=== PATIENT | female | born 1945 | race Caucasian/White ===

== ENCOUNTER 2017-01-14 09:04 | Outpatient (CLI) | payer MEDICARE, OTHER | END 2017-01-14 09:05 | disposition home or self-care (01) | DX: E78.5 Hyperlipidemia, unspecified (principal); I10 Essential (primary) hypertension ==

== ENCOUNTER 2017-01-31 11:20 | Outpatient (CLI) | payer MEDICARE, OTHER ==
[2017-01-31] MEDS ORDERED: IOPAMIDOL-300 100 ML VIAL IVP ONE (11:51)
--- NOTE | 2017-01-31 13:58 | CT Report ---
CT CHEST WITH CONTRAST: 01/31/2017 CLINICAL INDICATION: Chronic cough. TECHNIQUE: Axial CT images of the chest were obtained with 100 mL Isovue-300 intravenously. No prev ious chest CT is available for comparison. FINDINGS: The heart and great vessels are unremarkable. No hilar or mediastinal lymphadenopathy is present. The lungs are clear. No effusion or pneumothorax is present. Limited evaluation of upper abdominal structures demonstrates normal adrenal glands. Osseous structures demonstrate mild degener ative changes. IMPRESSION: NORMAL CT OF THE CHEST WITH CONTRAST. In accordance with CT protocol optimization, one or more of the following dose reduction techniques w ere utilized for this exam: automated exposure control, adjustment of mA and/or KV based on patient size, or use of iterative reconstructive technique. JOB #: [id number] EXT JOB #:[id number]
== END 2017-01-31 11:21 | disposition home or self-care (01) ==
LOC: DI 11:20
PROVIDERS: ATTEND Physician Assistant Medical
DX: R05 Cough (principal); M19.072 Primary osteoarthritis, left ankle and foot
CPT/HCPCS: 71260; 73630; Q9967

== ENCOUNTER 2017-01-31 14:43 | Outpatient (CLI) | payer MEDICARE, OTHER ==
--- NOTE | 2017-01-31 16:37 | XRAY Report ---
THREE VIEW LEFT FOOT: 01/31/2017 CLINICAL INDICATION: Pain. FINDINGS: AP, lateral, and oblique views of the left foot demonstrate moderate osteoarthritis. There is no evidence of acute fracture or dislocation. No radiopaque foreign body is seen in the soft tiss ues. IMPRESSION: MODERATE OSTEOARTHRITIS. JOB #: [id number] EXT JOB #:[id number]
== END 2017-01-31 14:44 | disposition home or self-care (01) ==
LOC: DI 14:43
PROVIDERS: ATTEND Physician Assistant Medical
DX: M19.072 Primary osteoarthritis, left ankle and foot (principal)

== ENCOUNTER 2017-02-05 14:53 | Outpatient (CLI) | payer MEDICARE, OTHER | END 2017-02-05 14:54 | disposition home or self-care (01) | DX: R60.9 Edema, unspecified (principal) ==

== ENCOUNTER 2017-02-14 09:08 | Outpatient (CLI) | payer MEDICARE, OTHER ==
[2017-02-14] MEDS ORDERED: ALBUTEROL NEB 2.5 MG/3 ML INH ONE (09:42)
== END 2017-02-14 09:09 | disposition home or self-care (01) ==
LOC: RT 09:08
PROVIDERS: ATTEND Physician Assistant Medical
DX: R05 Cough (principal)
CPT/HCPCS: 94060; 94729; J7613

== ENCOUNTER 2017-03-18 10:03 | Outpatient (CLI) | payer MEDICARE, OTHER ==
--- NOTE | 2017-03-22 15:39 | Mammography Report ---
DIGITAL SCREENING MAMMOGRAM: 03/18/2017 CLINICAL INDICATION: A 71-year-old with family history of breast cancer, history of benign biopsy and bilateral reduction, for screening. COMPARISON: Films from [facility] dated 02/28/2016, 03/10/2015, 03/10/2014, 2012. TECHNIQUE: Routine CC and MLO projections were obtained of the breasts. FINDINGS: The breasts demonstrate scattered fibroglandular densities bilaterally. In the right upper outer quadrant, there is apparent increase in calcifications. Further evaluation with spot magnifica tion views is recommended. No mammographically suspicious findings are appreciated in the left breast . IMPRESSION: INCOMPLETE EXAMINATION. RECOMMENDATION: ADDITIONAL EVALUATION OF THE RIGHT BREAST ABOVE. BIRADS CATEGORY 0-INCOMPLETE. STANDARD QUALIFYING STATEMENTS 1. This examination was reviewed with the aid of Computer-Aided Detection (CAD). 2. A negative or benign imaging report should not delay biopsy if clinically suspicious findings are present. Consider surgical consultation if warranted. More than 5% of cancers are not identified by i maging. 3. Dense breasts may obscure an underlying neoplasm. JOB #: [id number] EXT JOB #:[id number]
== END 2017-03-18 10:04 | disposition home or self-care (01) ==
LOC: DI 10:03
PROVIDERS: ATTEND Physician Assistant Medical
DX: Z12.31 Encounter for screening mammogram for malignant neoplasm of breast (principal); R92.2 Inconclusive mammogram; Z80.3 Family history of malignant neoplasm of breast
CPT/HCPCS: 77067

== ENCOUNTER 2017-04-29 11:00 | Outpatient (CLI) | payer MEDICARE, OTHER ==
--- NOTE | 2017-04-29 15:15 | Mammography Report ---
DIGITAL DIAGNOSTIC RIGHT MAMMOGRAM: 04/29/2017 CLINICAL INDICATION: Calcifications on screening. COMPARISON: 03/18/2017, 02/28/2016, 03/10/2015, 03/10/2014, 03/09/2013. TECHNIQUE: Right true lateral and spot magnification views. FINDINGS: The right breast again demonstrates scattered fibroglandular densities. The calcifications in question, in the right upper outer central breast, appear coarse on spot magnification views. No associated mass is identified. IMPRESSION: PROBABLE BENIGN RIGHT BREAST CALCIFICATIONS. RECOMMENDATION: DIAGNOSTIC RIGHT MAMMOGRAM IN SIX MONTHS TO ASSURE STABILITY. BIRADS CATEGORY 3-PROBABLE BENIGN FINDINGS. STANDARD QUALIFYING STATEMENTS 1. This examination was reviewed with the aid of Computer-Aided Detection (CAD). 2. A negative or benign imaging report should not delay biopsy if clinically suspicious findings are present. Consider surgical consultation if warranted. More than 5% of cancers are not identified by i maging. 3. Dense breasts may obscure an underlying neoplasm. JOB #: [id number] EXT JOB #:[id number]
== END 2017-04-29 11:01 | disposition home or self-care (01) ==
LOC: DI 11:00
PROVIDERS: ATTEND Physician Assistant Medical
DX: R92.8 Other abnormal and inconclusive findings on diagnostic imaging of breast (principal)

== ENCOUNTER 2017-05-28 08:15 | Outpatient (CLI) | payer MEDICARE, OTHER ==
[2017-05-28 14:12] LABS: HEMOGLOBIN A1C 0.55 g/dL
[2017-05-28 14:21] LABS: ALBUMIN/GLOBULIN RATIO 1.6 (1.0-2.2); BILIRUBIN,TOTAL 0.4 mg/dL (0.2-1.0); CALCIUM 9.5 mg/dL (8.5-10.3); CREATININE 0.9 mg/dL (0.4-1.0); POTASSIUM 3.8 mmol/L (3.5-5.0); TOTAL PROTEIN 6.5 g/dL (6.7-8.2)
== END 2017-05-28 08:16 | disposition home or self-care (01) ==
LOC: LAB.WCP 08:15
PROVIDERS: ATTEND Physician Assistant Medical
DX: R73.9 Hyperglycemia, unspecified (principal)
CPT/HCPCS: 36415; 80053; 83036

== ENCOUNTER 2017-09-05 10:14 | Outpatient (CLI) | payer MEDICARE, OTHER ==
--- NOTE | 2017-09-05 14:46 | XRAY Report ---
EXAM: LEFT KNEE RADIOGRAPHY EXAM DATE: 09/05/2017 10:39 AM. CLINICAL HISTORY: Left knee pain for one month. No known injury. COMPARISON: None. TECHNIQUE: 3 views. FINDINGS: Bones: Normal. No fractures or bone lesions. Joints: Mild to moderate narrowing of medial compartment height and patella femoral joint space. Mild lateral compartment height narrowing. Spurring of tibial spines. No joint effusion or subluxation. Soft Tissues: Normal. No soft tissue swelling. IMPRESSION: Mild to moderate degenerative changes. [facility] Referring Provider Line: [phone] SITE ID: [id number]
== END 2017-09-05 10:15 | disposition home or self-care (01) ==
LOC: DI 10:14
PROVIDERS: ATTEND Physician Assistant Medical
DX: M17.12 Unilateral primary osteoarthritis, left knee (principal)

== ENCOUNTER 2017-09-30 08:00 | Outpatient (CLI) | payer MEDICARE, OTHER | END 2017-09-30 08:01 | disposition home or self-care (01) | LOC: LAB.WCP 08:00 | PROVIDERS: ATTEND Physician Assistant Medical | DX: L03.319 Cellulitis of trunk, unspecified (principal) | CPT/HCPCS: 87070; 87205 ==

== ENCOUNTER 2017-11-19 10:45 | Outpatient (CLI) | payer MEDICARE, OTHER ==
--- NOTE | 2017-11-19 17:55 | Mammography Report ---
DIGITAL DIAGNOSTIC RIGHT MAMMOGRAM: 11/19/2017 CLINICAL INDICATION: Followup calcifications. COMPARISON: 04/29/2017, 03/18/2017, 02/28/2016, 03/10/2015, 03/10/2014, 03/09/2013. TECHNIQUE: Right CC, MLO, true lateral, spot magnification views. FINDINGS: The right breast again demonstrates scattered fibroglandular densities. The calcifications in question, in the right upper outer central breast, have coarsened in the interval. No developing pleomorphism is seen. No associated mass or architectural distortion is seen. IMPRESSION: PROBABLE BENIGN CALCIFICATIONS. RECOMMENDATION: Diagnostic bilateral mammogram in 6 months, to assure stability. BIRADS category: 3, probable benign findings. STANDARD QUALIFYING STATEMENTS 1. This examination was reviewed with the aid of Computed-Aided Detection (CAD). 2. A negative or benign imaging report should not delay biopsy if clinically suspicious findings are present. Consider surgical consultation if warranted. More than 5% of cancers are not identified by imaging. 3. Dense breasts may obscure an underlying neoplasm. TD: 11/19/2017 17:54
== END 2017-11-19 10:46 | disposition home or self-care (01) ==
LOC: DI 10:45
PROVIDERS: ATTEND Physician Assistant Medical
DX: R92.1 Mammographic calcification found on diagnostic imaging of breast (principal)

== ENCOUNTER 2017-12-05 08:00 | Outpatient (CLI) | payer MEDICARE, OTHER | END 2017-12-05 08:01 | disposition home or self-care (01) | LOC: LAB.WCP 08:00 | PROVIDERS: ATTEND Physician Assistant Medical | DX: N64.9 Disorder of breast, unspecified (principal) | CPT/HCPCS: 87070; 87205 ==

== ENCOUNTER 2017-12-20 08:00 | Outpatient (CLI) | payer MEDICARE, OTHER ==
[2017-12-20 13:03] LABS: ALBUMIN 3.8 g/dL (3.2-5.5); ALBUMIN/GLOBULIN RATIO 1.4 (1.0-2.2); ALKALINE PHOSPHATASE 51 IU/L (42-121); ALT ALANINE AMINOTRANSFERASE 29 IU/L (10-60); AST ASPARTATE AMINOTRANSFERASE 24 IU/L (10-42); BILIRUBIN,TOTAL 0.7 mg/dL (0.2-1.0); BUN - BLOOD UREA NITROGEN 17 mg/dL (6-20); CALCIUM 8.8 mg/dL (8.5-10.3); CARBON DIOXIDE - CO2 28 mmol/L (21-32); CHLORIDE 105 mmol/L (101-111); CHOLESTEROL 144 mg/dL; CREATININE 0.9 mg/dL (0.4-1.0); GFR - MDRD 62 (>89); GLUCOSE 108 mg/dL (70-100); HDL CHOLESTEROL 48 mg/dL; LDL CHOLESTEROL,CALCULATED 64 mg/dL; LDL/HDL RATIO 1.3 (<4.4); SODIUM 138 mmol/L (135-145); TOTAL PROTEIN 6.5 g/dL (6.7-8.2); VLDL CHOLESTEROL 32 mg/dL
== END 2017-12-20 08:01 | disposition home or self-care (01) ==
LOC: LAB.WCP 08:00
PROVIDERS: ATTEND Physician Assistant Medical
DX: R73.9 Hyperglycemia, unspecified (principal); E78.5 Hyperlipidemia, unspecified
CPT/HCPCS: 36415; 80053; 80061; 83721

== ENCOUNTER 2018-06-26 08:26 | Outpatient (CLI) | payer MEDICARE, OTHER ==
[2018-06-26 13:01] LABS: ALBUMIN 3.9 g/dL (3.2-5.5); ALBUMIN/GLOBULIN RATIO 1.4 (1.0-2.2); ALKALINE PHOSPHATASE 64 IU/L (42-121); ALT ALANINE AMINOTRANSFERASE 31 IU/L (10-60); AST ASPARTATE AMINOTRANSFERASE 24 IU/L (10-42); BILIRUBIN,TOTAL 0.5 mg/dL (0.2-1.0); BUN - BLOOD UREA NITROGEN 17 mg/dL (6-20); CALCIUM 9.3 mg/dL (8.5-10.3); CARBON DIOXIDE - CO2 28 mmol/L (21-32); CHLORIDE 102 mmol/L (101-111); CHOL/HDL RATIO 2.7 (<4.4); CHOLESTEROL 138 mg/dL; CREATININE 0.4 mg/dL (0.4-1.0); GFR - MDRD 158 (>89); GLUCOSE 117 mg/dL (70-100); HDL CHOLESTEROL 52 mg/dL; LDL CHOLESTEROL,CALCULATED 56 mg/dL; LDL/HDL RATIO 1.1 (<4.4); SODIUM 139 mmol/L (135-145); TOTAL PROTEIN 6.6 g/dL (6.7-8.2); VLDL CHOLESTEROL 30 mg/dL
== END 2018-06-26 08:27 | disposition home or self-care (01) ==
LOC: LAB.WCP 08:26
PROVIDERS: ATTEND Physician Assistant Medical
DX: E78.5 Hyperlipidemia, unspecified (principal)
CPT/HCPCS: 36415; 80053; 80061; 83721

== ENCOUNTER 2018-10-08 08:00 | Outpatient (CLI) | payer MEDICARE, OTHER ==
[2018-10-08 19:08] LABS: CREATININE 0.8 mg/dL (0.4-1.0)
== END 2018-10-08 23:59 | disposition home or self-care (01) ==
LOC: LAB.WCP 08:00
PROVIDERS: ATTEND Physician Assistant
DX: Z01.812 Encounter for preprocedural laboratory examination (principal)
CPT/HCPCS: 36415; 82565

== ENCOUNTER 2018-10-15 08:00 | Outpatient (CLI) | payer MEDICARE, OTHER | END 2018-10-15 23:59 | disposition home or self-care (01) | LOC: LAB.WCP 08:00 | PROVIDERS: ATTEND Physician Assistant Medical | DX: L03.319 Cellulitis of trunk, unspecified (principal) | CPT/HCPCS: 87070; 87075; 87205 ==

== ENCOUNTER 2019-01-26 23:02 | Outpatient (CLI) | payer MEDICARE, OTHER ==
--- NOTE | 2019-01-27 03:10 | Ultrasound Report ---
Reason: EDEMA Procedure Date: 01/26/2019 Accession Number: [id number] / [id number] Procedure: US - Duplex Ext Veins Bilateral CPT Code: FULL RESULT: EXAM: BILATERAL LOWER EXTREMITY VENOUS ULTRASOUND EXAM DATE: 01/26/2019 11:00 PM. CLINICAL HISTORY: Bilateral edema. COMPARISON: 02/05/2017. TECHNIQUE: Real-time sonographic vascular imaging was performed by the manager wellness through the lower extremities utilizing both color-flow and Doppler spectral analysis. Multiple union representative static images were saved for review. FINDINGS: Right: Common Femoral Vein (CFV): Normal. CFV-GSV Junction: Normal. Profunda Femoral Vein (PFV): Normal. Femoral Vein (FV) Prox: Normal. Femoral Vein (FV) Mid: Normal. Femoral Vein (FV) Dist: Normal. Popliteal Vein: Normal. Posterior Tibial Veins: Normal. Peroneal Veins: Normal. Left: Common Femoral Vein (CFV): Normal. CFV-GSV Junction: Normal. Profunda Femoral Vein (PFV): Normal. Femoral Vein (FV) Prox: Normal. Femoral Vein (FV) Mid: Normal. Femoral Vein (FV) Dist: Normal. Popliteal Vein: Normal. Posterior Tibial Veins: Normal. Peroneal Veins: Normal. Other: Left popliteal fossa cyst measuring 5.1 x 1.3 x 2.5 cm. IMPRESSION: 1. No evidence for deep venous thrombosis bilaterally. 2. Left popliteal fossa cyst again seen. [facility]
== END 2019-01-26 23:03 | disposition home or self-care (01) ==
LOC: DI 23:02
PROVIDERS: ATTEND Physician Assistant Medical
DX: M71.22 Synovial cyst of popliteal space [Baker], left knee (principal); R60.9 Edema, unspecified
CPT/HCPCS: 93970

== ENCOUNTER 2019-01-28 08:00 | Outpatient (CLI) | payer MEDICARE, OTHER ==
[2019-01-28 18:59] LABS: BILIRUBIN,URINE NEGATIVE (NEGATIVE); GLUCOSE, URINE (UA) NEGATIVE (NEGATIVE); KETONES,URINE (UA) NEGATIVE (NEGATIVE); LEUKOCYTE ESTERASE, URINE NEGATIVE (NEGATIVE); NITRITE,URINE NEGATIVE (NEGATIVE); OCCULT BLOOD,URINE NEGATIVE (NEGATIVE); PROTEIN,URINE NEGATIVE (NEGATIVE); UROBILINOGEN,URINE 0.2 (NORMAL) E.U./dL (NORMAL)
[2019-01-28 19:10] LABS: CALCIUM 9.4 mg/dL (8.5-10.3); CREATININE 0.8 mg/dL (0.4-1.0)
[2019-01-28 19:18] LABS: CLARITY,URINE CLEAR (CLEAR)
== END 2019-01-28 08:01 | disposition home or self-care (01) ==
LOC: LAB.WCP 08:00
PROVIDERS: ATTEND Physician Assistant Medical
DX: R60.9 Edema, unspecified (principal)
CPT/HCPCS: 36415; 80048; 81001; 81003; 87086

== ENCOUNTER 2019-02-20 11:00 | Outpatient (CLI) | payer MEDICARE, OTHER ==
--- NOTE | 2019-02-20 15:12 | XRAY Report ---
Reason: KNEE PAIN,LEFT,ANKLE PAIN,LEFT Procedure Date: 02/20/2019 Accession Number: [id number] / [id number] Procedure: WCP - Knee 2 View LT CPT Code: FULL RESULT: EXAM: LEFT KNEE RADIOGRAPHY EXAM DATE: 02/20/2019 11:22 AM. CLINICAL HISTORY: KNEE PAIN,LEFT,ANKLE PAIN,LEFT. COMPARISON: KNEE 3 VIEW LT 09/05/2017 10:19 AM. TECHNIQUE: 3 views. FINDINGS: Bones: Normal. No fractures or bone lesions. Joints: Osteophyte lateral joint space with mild joint space narrowing. Spurring of the tibial spines. Small osteophyte patellofemoral compartment. Trace effusion. Soft Tissues: Normal. No soft tissue swelling. IMPRESSION: Mild to moderate DJD [facility]
--- NOTE | 2019-02-20 15:14 | XRAY Report ---
Reason: KNEE PAIN,LEFT,ANKLE PAIN,LEFT Procedure Date: 02/20/2019 Accession Number: [id number] / [id number] Procedure: WCP - Ankle 2 View LT CPT Code: FULL RESULT: EXAM: LEFT ANKLE RADIOGRAPHY EXAM DATE: 02/20/2019 11:22 AM. CLINICAL HISTORY: Chronic ankle pain COMPARISON: None. TECHNIQUE: 2 views. FINDINGS: Bones: Plantar heel spur. Spurring lateral ankle joint space. Narrowing of the tibiotalar joint.Spurring talonavicular joint. Spurring anterior talus. No subluxations. The ankle mortise is normally aligned. Soft Tissues: Normal. No soft tissue swelling. IMPRESSION: DJD. If there is clinical concern for acute fracture 3 views are recommended [facility]
== END 2019-02-20 11:01 | disposition home or self-care (01) ==
LOC: DI.WCP 11:00
PROVIDERS: ATTEND Physician Assistant Medical
DX: M17.12 Unilateral primary osteoarthritis, left knee (principal); M19.072 Primary osteoarthritis, left ankle and foot

== ENCOUNTER 2019-06-18 08:00 | Outpatient (CLI) | payer MEDICARE, OTHER ==
[2019-06-18 12:04] LABS: BASOPHILS # (AUTO) 0.1 10^3/uL (0.0-0.1); BASOPHILS % (AUTO) 1.1 %; EOSINOPHILS # (AUTO) 0.1 10^3/uL (0.0-0.7); EOSINOPHILS % (AUTO) 2.5 %; HGB - HEMOGLOBIN 14.4 g/dL (12.0-16.0); LYMPHOCYTES # (AUTO) 1.1 10^3/uL (1.5-3.5); LYMPHOCYTES % (AUTO) 20.3 %; MEAN CORPUSCULAR HEMOGLOBIN 31.6 pg (27.0-31.0); MEAN CORPUSCULAR HGB CONC 33.8 g/dL (32.0-36.0); MEAN CORPUSCULAR VOLUME 93.6 fL (81.0-99.0); MEAN PLATELET VOLUME 10.3 fL (7.9-10.8); MONOCYTES # (AUTO) 0.5 10^3/uL (0.0-1.0); MONOCYTES % (AUTO) 8.8 %; NEUTROPHILS # (AUTO) 3.7 10^3/uL (1.5-6.6); NEUTROPHILS % (AUTO) 66.9 %; PLT - PLATELET COUNT 319 10^3/uL (130-450); RED BLOOD COUNT 4.55 10^6/uL (4.20-5.40); WHITE BLOOD COUNT 5.6 x10^3/uL (4.8-10.8)
[2019-06-18 12:54] LABS: ALBUMIN 4.1 g/dL (3.2-5.5); ALBUMIN/GLOBULIN RATIO 1.5 (1.0-2.2); ALKALINE PHOSPHATASE 67 IU/L (42-121); ALT ALANINE AMINOTRANSFERASE 23 IU/L (10-60); AST ASPARTATE AMINOTRANSFERASE 20 IU/L (10-42); BILIRUBIN,TOTAL 0.6 mg/dL (0.2-1.0); BUN - BLOOD UREA NITROGEN 22 mg/dL (6-20); CALCIUM 9.4 mg/dL (8.5-10.3); CARBON DIOXIDE - CO2 25 mmol/L (21-32); CHLORIDE 104 mmol/L (101-111); CHOL/HDL RATIO 2.7 (<4.4); CHOLESTEROL 152 mg/dL; CREATININE 0.9 mg/dL (0.4-1.0); GFR - MDRD 62 (>89); GLUCOSE 142 mg/dL (70-100); HDL CHOLESTEROL 57 mg/dL; LDL CHOLESTEROL,CALCULATED 71 mg/dL; LDL/HDL RATIO 1.2 (<4.4); SODIUM 137 mmol/L (135-145); TOTAL PROTEIN 6.9 g/dL (6.7-8.2); VLDL CHOLESTEROL 24 mg/dL
== END 2019-06-18 23:59 | disposition home or self-care (01) ==
LOC: LAB.WCP 08:00
PROVIDERS: ATTEND Physician Assistant Medical
DX: R73.9 Hyperglycemia, unspecified (principal); E78.5 Hyperlipidemia, unspecified; R53.83 Other fatigue; I10 Essential (primary) hypertension
CPT/HCPCS: 36415; 80053; 80061; 83721; 84443; 85025

== ENCOUNTER 2019-07-22 07:00 | Outpatient (CLI) | payer MEDICARE, OTHER ==
[2019-07-22 19:16] LABS: HB2 TOTAL 14.4 g/dL; HEMOGLOBIN A1C 0.59 g/dL; HEMOGLOBIN A1C % 5.9 % (4.6-6.2)
== END 2019-07-22 23:59 | disposition home or self-care (01) ==
LOC: LAB.WCP 07:00
PROVIDERS: ATTEND Physician Assistant Medical
DX: R73.9 Hyperglycemia, unspecified (principal)
CPT/HCPCS: 36415; 83036

== ENCOUNTER 2019-09-09 10:54 | Outpatient (CLI) | payer MEDICARE, OTHER ==
--- NOTE | 2019-09-09 12:15 | Mammography Report ---
Reason: ROUTINE MAMMO Procedure Date: 09/09/2019 Accession Number: [id number] / [id number] Procedure: FERNANDO - Screening Mammo w/Priyank CPT Code: Final Report FULL RESULT: EXAM: Screening Mammo w/Priyank DATE: 09/09/2019 11:33 AM CLINICAL HISTORY: Routine screening, mother with breast cancer. TECHNIQUE: (B) - Bilateral CC and MLO views were obtained. COMPARISON: 11/19/2017, 04/29/2017, 03/18/2017, 02/28/2016, 03/10/2015, 03/10/2014, 03/09/2013. PARENCHYMAL PATTERN: (D) - The breasts demonstrate heterogeneously dense fibroglandular parenchyma bilaterally. FINDINGS: Left breast: No significant interval change. There are no suspicious masses, calcifications, or areas of distortion. Right breast: Questionable increase in pleomorphic calcifications right upper outer quadrant 8 to 9 cm from the nipple. Further evaluation by magnification views suggested. No new dominant mass or architectural distortion. IMPRESSION: Incomplete examination. BI-RADS category 0. Need magnification views of the right breast. Negative left breast. RECOMMENDATION: (ADDMAM) - Recommend additional mammographic views. Magnification views right breast. BI-RADS CATEGORY: (0) - Incomplete Examination - need additional evaluation. STANDARD QUALIFYING STATEMENTS: 1. This examination was not reviewed with the aid of Computer-Aided Detection (CAD). 2. A negative or benign imaging report should not preclude biopsy if clinically suspicious findings are present. 3. Dense breasts may obscure an underlying neoplasm. 4. This examination was reviewed with the aid of 3D breast imaging (tomosynthesis).
== END 2019-09-09 10:55 | disposition home or self-care (01) ==
LOC: DI 10:54
DX: Z12.31 Encounter for screening mammogram for malignant neoplasm of breast (principal); Z80.3 Family history of malignant neoplasm of breast
CPT/HCPCS: 77063; 77067

== ENCOUNTER 2019-10-05 12:37 | Outpatient (CLI) | payer MEDICARE, OTHER ==
--- NOTE | 2019-10-05 14:25 | Mammography Report ---
Reason: ABN MAMMO - RT SPEC VIEWS Procedure Date: 10/05/2019 Accession Number: [id number] / [id number] Procedure: FERNANDO - Diag Special Views Dig RT CPT Code: Final Report FULL RESULT: EXAM: Diag Special Views Dig RT DATE: 10/05/2019 1:59 PM CLINICAL HISTORY: Diagnostic examination. Follow-up of right breast calcifications. History of benign right breast biopsy. Family history of breast cancer in the mother at the age of 62. TECHNIQUE: (R) - Right spot magnified CC, LM and spot magnified LM views are obtained. COMPARISON: 11/19/2017 through 03/09/2013. PARENCHYMAL PATTERN: (A) - The breast(s) demonstrate(s) scattered fibroglandular densities. FINDINGS: The grouping of indeterminate calcifications in the upper outer right breast approximately 8.5 cm from the nipple remains indeterminate on spot views with similar configuration to the appearance in 2018, probably benign. There are no suspicious masses or areas of distortion. IMPRESSION: Probably Benign. BI-RADS category 3. RECOMMENDATION: (6MOS) - Recommend 6 month follow-up exam. Spot views of the right breast. BI-RADS CATEGORY: (3) - Probably Benign. STANDARD QUALIFYING STATEMENTS: 1. This examination was not reviewed with the aid of Computer-Aided Detection (CAD). 2. A negative or benign imaging report should not preclude biopsy if clinically suspicious findings are present. 3. Dense breasts may obscure an underlying neoplasm. 4. This examination was reviewed with the aid of 3D breast imaging (tomosynthesis).
== END 2019-10-05 12:38 | disposition home or self-care (01) ==
LOC: DI 12:37
PROVIDERS: ATTEND Physician Assistant Medical
DX: R92.1 Mammographic calcification found on diagnostic imaging of breast (principal); Z80.3 Family history of malignant neoplasm of breast

== ENCOUNTER 2020-05-20 07:30 | Outpatient (CLI) | payer MEDICARE, OTHER ==
[2020-05-20 12:13] LABS: AMYLASE 75 U/L (28-100); LIPASE 38 U/L (22-51)
[2020-05-20 12:17] LABS: ALBUMIN 3.8 g/dL (3.2-5.5); ALBUMIN/GLOBULIN RATIO 1.4 (1.0-2.2); ALKALINE PHOSPHATASE 62 IU/L (42-121); ALT ALANINE AMINOTRANSFERASE 22 IU/L (10-60); AST ASPARTATE AMINOTRANSFERASE 16 IU/L (10-42); BILIRUBIN,TOTAL 0.6 mg/dL (0.2-1.0); BUN - BLOOD UREA NITROGEN 19 mg/dL (6-20); CALCIUM 9.2 mg/dL (8.5-10.3); CARBON DIOXIDE - CO2 25 mmol/L (21-32); CHLORIDE 106 mmol/L (101-111); CHOL/HDL RATIO 2.9 (<4.4); CHOLESTEROL 144 mg/dL; CREATININE 0.9 mg/dL (0.4-1.0); GLUCOSE 127 mg/dL (70-100); HDL CHOLESTEROL 49 mg/dL; LDL CHOLESTEROL,CALCULATED 69 mg/dL; LDL/HDL RATIO 1.4 (<4.4); SODIUM 139 mmol/L (135-145); TOTAL PROTEIN 6.5 g/dL (6.7-8.2); VLDL CHOLESTEROL 26 mg/dL
== END 2020-05-20 23:59 | disposition home or self-care (01) ==
LOC: LAB.WCP 07:30
PROVIDERS: ATTEND Nurse Practitioner Family
DX: K29.70 Gastritis, unspecified, without bleeding (principal); E78.5 Hyperlipidemia, unspecified; R73.9 Hyperglycemia, unspecified
CPT/HCPCS: 36415; 80053; 80061; 82150; 83036; 83690; 83721

== ENCOUNTER 2020-05-23 07:00 | Outpatient (CLI) | payer MEDICARE, OTHER ==
[2020-05-23 19:11] LABS: H. PYLORIS ANTIGEN STL NEGATIVE (Negative)
== END 2020-05-23 23:59 | disposition home or self-care (01) ==
LOC: LAB.R 07:00
PROVIDERS: ATTEND Nurse Practitioner Family
DX: K29.70 Gastritis, unspecified, without bleeding (principal)
CPT/HCPCS: 82274; 87338

== ENCOUNTER 2020-06-03 11:00 | Outpatient (CLI) | payer MEDICARE, OTHER ==
--- NOTE | 2020-06-06 12:07 | Mammography Report ---
UNILATERAL RIGHT DIGITAL DIAGNOSTIC MAMMOGRAM 3D/2D: 06/03/2020 CLINICAL: Patient returns for 6 month follow up on right breast for new calcifications. Comparison is made to exams dated: 10/05/2019 mammogram, 09/09/2019 mammogram, 11/19/2017 mammogram - [facility], 04/29/2017 mammogram, and 03/18/2017 mammogram - [facility]. The tissue of right breast is predominantly fatty. There are grouped coarse calcifications in the right breast at 10 o'clock middle depth. These are no t significantly changed. No other significant masses or calcifications are seen in the breast. IMPRESSION: PROBABLY BENIGN The grouped coarse calcifications in the right breast are probably benign. A follow-up mammogram in 6 months is recommended to demonstrate stability. This exam was interpreted at Station ID: [id number]. NOTE: For mammograms, a report in lay terms will be sent to the patient. Approximately 15% of breast malignancies will not be visualized mammographically. In the management of a palpable breast mass, a negative mammogram must not discourage biopsy of a clinically suspicious lesion. Electronically Signed By: Yohannes pulido/lisa:06/03/2020 12:56:02 ACR BI-RADS Category 3: Probably benign [id number] PARENCHYMAL PATTERN: (F) - The breast(s) demonstrate(s) diffuse fatty replacement. BI-RADS CATEGORY: (3) - 3 Mammogram [id number] 6 month follow-up LATERALITY: (B)
== END 2020-06-03 11:01 | disposition home or self-care (01) ==
LOC: DI 11:00
PROVIDERS: ATTEND Physician Assistant Medical
DX: R92.8 Other abnormal and inconclusive findings on diagnostic imaging of breast (principal)

== ENCOUNTER 2020-06-18 10:47 | Outpatient (CLI) | payer MEDICARE, OTHER ==
[2020-06-18] MEDS ORDERED: IOVERSOL 320 100 ML VIAL IVP ONE ×2 (11:05→11:36)
--- NOTE | 2020-06-18 17:45 | CT Report ---
PROCEDURE: ABDOMEN W/WO INDICATIONS: GASTRITIS/ABD PAIN, RUQ CONTRAST: IV CONTRAST: Optiray 320 ml: 100 PO CONTRAST: *NO PO CONTRAST TECHNIQUE: 4 phase scanning was performed. After the administration of intravenous contrast, 5 mm thick section s acquired from the diaphragm to the symphysis. 5 mm coronal and sagittal reformats were acquired. For radiation dose reduction, the following was used: automated exposure control, adjustment of mA a nd/or kV according to patient size. COMPARISON: None. FINDINGS: Image quality: Excellent. Lung bases: Lung bases are clear. Heart size is normal. A small hiatal hernia is incidentally note d. Liver: The liver demonstrates normal size. No focal liver masses are seen. No areas of abnormal live r enhancement can be seen. Other solid organs: Gallbladder demonstrates a rim calcified gallstone within the gallbladder neck, as on series 5 image 23, measuring 1.6 cm. Biliary system is non dilated. Pancreas is normal in mor phology. Spleen is normal in size and enhancement. No adrenal nodules. Both kidneys demonstrate normal size and enhancement, without hydronephrosis or nephrolithiasis. Num erous simple appearing nonenhancing peripelvic cysts can be seen on the left. Nodes and vessels: No retroperitoneal or mesenteric adenopathy by size criteria. Aorta and inferior vena cava are normal in size. Bowel and peritoneum: In this patient with this given history, scrutiny is given to the stomach. No froylan stomach wall thickening can be seen to the limits of this standard protocol study, without oral contrast or gas crystals. Unenhanced bowel loops are normal in caliber. No free fluid or air. Ther e is a moderate amount of stool seen within the colon. Bones: No suspicious bony lesions. No vertebral body compression fractures. Age-appropriate degene rative changes are seen. Miscellaneous: No ventral hernias. IMPRESSION: Normal appearing liver, without masses identified. No significant stomach abnormality or bowel abnormality can be seen. There is a moderate amount of stool seen within the colon. Please correlate with clinical constipatio n. Incidental note is made of: Small hiatal hernia Rim calcified gallstone seen within the gallbladder neck Simple appearing left kidney parapelvic cysts Reviewed by: Kade Echeverria MD on 06/18/2020 4:44 PM AKDT Approved by: Kade Echeverria MD on 06/18/2020 4:44 PM AKDT Station ID: [id number]
== END 2020-06-18 10:48 | disposition home or self-care (01) ==
LOC: DI 10:47
PROVIDERS: ATTEND Nurse Practitioner Family
DX: K29.70 Gastritis, unspecified, without bleeding (principal); R10.11 Right upper quadrant pain
CPT/HCPCS: 74170; Q9967

== ENCOUNTER 2020-06-23 12:44 | Outpatient (CLI) | payer MEDICARE, OTHER ==
--- NOTE | 2020-06-23 17:12 | DEXA Report ---
PROCEDURE: Dexa Spine and/or Hip INDICATIONS: POST MENOPAUSAL TECHNIQUE: Dual energy x-ray absorptiometry (DXA) was performed on a [employer] System. Regions measur ed are the AP Spine, femoral neck, and if needed forearm. COMPARISON: None. FINDINGS: Lumbar Spine: Bone Mineral Density 0.953 g/cm/cm,T score -1.9, moderate osteopenia Left Hip: Bone Mineral Density 0.748 g/cm/cm,T score -2.1, severe osteopenia Left Femoral Neck: Bone Mineral Density 0.761 g/cm/cm, T score -2.0, severe osteopenia (T score greater or equal to -1.0: NORMAL) (T score from -1.1 to -2.4: OSTEOPENIA) (T score less than or equal to -2.5 to: OSTEOPOROSIS) Impression: Severe osteopenia within the left hip and femoral neck. Patients with diagnosis of osteoporosis or osteopenia should have regular bone mineral density assess ment. For those eligible for Medicare, routine testing is allowed once every 2 years. Testing frequ ency can be increased for patients who have rapidly progressing disease or for those who are receivin g medical therapy to restore bone mass. Reviewed by: Ashanti Latif MD on 06/23/2020 5:11 PM PDT Approved by: Ashanti Latif MD on 06/23/2020 5:11 PM PDT Station ID: [id number]
== END 2020-06-23 12:45 | disposition home or self-care (01) ==
LOC: DI 12:44
PROVIDERS: ATTEND Physician Assistant Medical
DX: M85.89 Other specified disorders of bone density and structure, multiple sites (principal)
CPT/HCPCS: 77080

== ENCOUNTER 2020-07-31 15:26 | Outpatient (CLI) | payer MEDICARE, OTHER | END 2020-07-31 15:27 | disposition critical access hospital (66) | LOC: EMS 15:26 | PROVIDERS: ATTEND Surgery | DX: M25.511 Pain in right shoulder (principal); W01.0XXA Fall on same level from slipping, tripping and stumbling without subsequent striking against object, initial encounter; Y93.K1 Activity, walking an animal | CPT/HCPCS: A0425; A0429 ==

== ENCOUNTER 2020-07-31 15:45 | Emergency (ER) | payer MEDICARE, OTHER ==
--- NOTE | 2020-07-31 16:38 | XRAY Report ---
PROCEDURE: Shoulder 2 View RT INDICATIONS: trauma/pain TECHNIQUE: 2 views of the shoulder were acquired. COMPARISON: None. FINDINGS: Bones: There is a mildly displaced fracture of the humeral neck. Mild to moderate acromioclavicular j oint degeneration present. No suspicious bony lesions. Visualized ribs appear intact. Soft tissues: No suspicious soft tissue calcifications. IMPRESSION: 1. Mildly displaced right humeral neck fracture. Reviewed by: Sarmad Degroot MD on 07/31/2020 4:36 PM PST Approved by: Sarmad Degroot MD on 07/31/2020 4:36 PM PST Station ID: [id number]
[2020-07-31] MEDS ORDERED: HYDROcod/ACETAM 5/325 MG TABLET PO STA (16:48)
[2020-07-31] MEDS ORDERED: IBUPROFEN 600 MG TABLET PO STA (16:48)
--- NOTE | 2020-07-31 17:07 | ED Physician Documentation ---
History of Present Illness - Stated complaint Stated Complaint: GLF - Chief complaint Chief Complaint: Trauma Ext - History obtained from History obtained from: Patient, EMS - Additonal information Additional information: PT was out for a walk about 1 hour ago, and tripped over a dog, falling to the ground and striking her R shoulder. Pt states she did not hit her head, and was not hurt in any other way. She states her shoulder hurt so much that she couldn't get herself up, and a friend called EMS. No numbness or tingling in RUE. No spinal pain. No hip or rib pain. No other complaints at this time. Review of Systems Ten Systems: 10 systems reviewed and negative Constitutional: reports: Reviewed and negative Eyes: reports: Reviewed and negative Ears: reports: Reviewed and negative Nose: reports: Reviewed and negative Throat: reports: Reviewed and negative Cardiac: reports: Reviewed and negative Respiratory: reports: Reviewed and negative GI: reports: Reviewed and negative : reports: Reviewed and negative Skin: reports: Reviewed and negative Musculoskeletal: reports: Extremity pain, Joint pain Neurologic: reports: Reviewed and negative Psychiatric: reports: Reviewed and negative Endocrine: reports: Reviewed and negative Immunocompromised: reports: Reviewed and negative PD PAST MEDICAL HISTORY - Past Medical History Cardiovascular: Hypertension Respiratory: None Endocrine/Autoimmune: None GI: Colon polyps, Other HEENT: Chronic vision loss Psych: Depression Musculoskeletal: Other Derm: Rosacea - Past Surgical History Past Surgical History: Yes Ortho: Other - Present Medications Home Medications: Ambulatory Orders Medication Instructions Recorded Confirmed Propranolol [Inderal] 40 mg PO BID 05/29/14 03/19/16 Venlafaxine ER [Effexor ER] 75 mg PO DAILY 05/29/14 03/19/16 Atorvastatin Calcium [Lipitor] 20 mg ORAL QPM 08/01/15 03/19/16 Pramipexole [Mirapex] 125 mcg ORAL QPM 08/01/15 03/19/16 Losartan [Cozaar] 50 mg PO DAILY 03/19/16 03/19/16 Primidone [Mysoline] 250 mg PO BID 03/19/16 03/19/16 Teriflunomide [Aubagio] 14 mg PO DAILY 03/19/16 03/19/16 HYDROcod/ACETAM 5/325 [Saline 5/325] 1 - 2 ea PO Q6H PRN #20 tablet 07/31/20 - Allergies Allergies/Adverse Reactions: Allergies Allergy/AdvReac Type Severity Reaction Status Date / Time latex AdvReac Unknown Verified 07/31/20 15:45 - Social History Does the pt smoke?: No Smoking Status: Never smoker Does the pt drink ETOH?: Yes Does the pt have substance abuse?: No - Immunizations Immunizations are current?: Yes - POLST Patient has POLST: No PD ED PE NORMAL - Vitals Vital signs reviewed: Yes - General General: Alert and oriented X 3, No acute distress - HEENT HEENT: Atraumatic, PERRL, EOMI, Moist mucous membranes - Neck Neck: Supple, no meningeal sign, No bony TTP - Cardiac Cardiac: RRR, No murmur, Strong equal pulses - Respiratory Respiratory: No respiratory distress, Clear bilaterally - Abdomen Abdomen: Soft, Non tender, Non distended - Derm Derm: Normal color, Warm and dry, No rash - Extremities Extremities: No deformity, Other (Severely limited ROM R shoulder, secondary to pain. Minimal edema. No palpable deformity. Intact ROM R elbow, wrist, and fingers.) - Neuro Neuro: Alert and oriented X 3, fruit distributor 2-12 intact, No motor deficit, No sensory deficit, Normal speech - Psych Psych: Normal mood, Normal affect Results - Vitals Vitals: Oxygen O2 Source Room air - Rads (name of study) R shoulder XR Radiology: Final report received, EMP read indepedently, See rad report (R humeral neck fx) Procedures - Splint (location) R shoulder Splint applied by: Tech Type of splint: Other (shoulder immobilizer) PD MEDICAL DECISION MAKING - ED course Complexity details: reviewed results, re-evaluated patient, considered differential, d/w patient, d/w family ED course: Pt's XR showed a proximal humeral fx. Pt was placed in a shoulder immobilizer, as above, and ortho contact info was given. Pt was treated for pain in the ED, and given Rx for Vicodin. We have discussed the need for ortho f/u, as well as the usual indications for return. Departure - Departure Disposition: 01 Home, Self Care Clinical Impression: Proximal humerus fracture Qualifiers: Encounter type: initial encounter Fracture type: closed Fracture morphology: unspecified fracture morphology Laterality: right Qualified Code(s): S42.201A - Unspecified fracture of upper end of right humerus, initial encounter for closed fracture Condition: Stable Instructions: ED Fx Upper Ext Follow-Up: Jaya Sheffield MD [Provider Admit Priv/Credential] - Prescriptions: HYDROcod/ACETAM 5/325 [Saline 5/325] 1 - 2 ea PO Q6H PRN #20 tablet PRN Reason: Pain Comments: Break in your humerus, or upper arm bone, just below the shoulder. You have been placed in a shoulder immobilizer to use your body as a splint to keep the broken bone from moving. Generally, these fractures heal on their own and do not require surgery. However, we will have you follow-up with our orthopedic group to be rechecked and make sure the fracture is healing properly. Take the prescribed narcotic pain medication, as well as ibuprofen, to help with the pain. You should apply ice to help with pain and swelling, as well. Do not use Tylenol at the same time as your prescribed pain medication, as the narcotic medication also contains Tylenol. Discharge Date/Time: 07/31/20 17:21
[2020-07-31 17:18] VITALS: BP 136/95
== END 2020-07-31 17:21 | disposition home or self-care (01) ==
LOC: EDUNIT# → ED 15:45
DX: S42.291A Other displaced fracture of upper end of right humerus, initial encounter for closed fracture (principal); W01.0XXA Fall on same level from slipping, tripping and stumbling without subsequent striking against object, initial encounter; Y93.01 Activity, walking, marching and hiking; I10 Essential (primary) hypertension
CPT/HCPCS: 29105; 73030; 99283; 99284; A9270

== ENCOUNTER 2020-08-11 07:00 | Outpatient (CLI) | payer MEDICARE, OTHER ==
--- NOTE | 2020-08-11 09:04 | XRAY Report ---
PROCEDURE: Shoulder 2 View RT INDICATIONS: NONDISPLACED FRACTURE OF HUMERUS TECHNIQUE: 2 views of the shoulder were acquired. COMPARISON: 07/31/2020 FINDINGS: Bones: Mildly displaced and minimally comminuted humeral neck fracture is redemonstrated. There appea rs to be slight further displacement and further impaction of the distal fracture fragment compared t o the prior study. No glenohumeral joint dislocation. No suspicious bony lesions. Degenerative change s at the acromioclavicular joint. Visualized ribs appear intact. Soft tissues: No suspicious soft tissue calcifications. IMPRESSION: 1. Further displacement and further impaction of the humeral neck fracture. 2. No glenohumeral joint dislocation.. Reviewed by: Mikaela Junior MD on 08/11/2020 9:03 AM PST Approved by: Mikaela Junior MD on 08/11/2020 9:03 AM PST Station ID: [id number]
== END 2020-08-11 23:59 | disposition home or self-care (01) ==
LOC: DI.N 07:00
PROVIDERS: ATTEND Orthopaedic Surgery
DX: S42.224A 2-part nondisplaced fracture of surgical neck of right humerus, initial encounter for closed fracture (principal)

== ENCOUNTER 2020-09-30 07:00 | Outpatient (CLI) | payer MEDICARE, OTHER ==
--- NOTE | 2020-09-30 11:43 | XRAY Report ---
PROCEDURE: Shoulder 3 View RT INDICATIONS: 2 PART NONDISPLACED FX OF SURGICAL NECK OF R HUMERUS TECHNIQUE: 4 views of the shoulder were acquired. COMPARISON: None. FINDINGS: Bones: No previously unidentified fractures or dislocations. No suspicious bony lesions. Visualize d ribs appear intact. Soft tissues: No suspicious soft tissue calcifications. IMPRESSION: Humeral head/neck fracture, previously identified, showing blurring of the fracture marcelino ins indicating early healing. Reviewed by: Gabriele Case MD on 09/30/2020 11:41 AM PST Approved by: Gabriele Case MD on 09/30/2020 11:41 AM PST Station ID: [id number]
== END 2020-09-30 23:59 | disposition home or self-care (01) ==
LOC: DI.N 07:00
PROVIDERS: ATTEND Orthopaedic Surgery
DX: S42.291D Other displaced fracture of upper end of right humerus, subsequent encounter for fracture with routine healing (principal)

== ENCOUNTER 2020-12-01 08:00 | Outpatient (CLI) | payer MEDICARE, OTHER ==
--- NOTE | 2020-12-01 13:54 | XRAY Report ---
PROCEDURE: Shoulder 3 View RT INDICATIONS: RT SHOULDER PAIN TECHNIQUE: 4 views of the shoulder were acquired. COMPARISON: 09/30/2020 shoulder x-ray FINDINGS: Bones: Moderately displaced, impacted, and angulated fracture of the humeral head/neck junction is pr esent, which has a subacute/chronic appearance. Alignment is unchanged. No suspicious bony lesions. Visualized ribs appear intact. Soft tissues: No suspicious soft tissue calcifications. IMPRESSION: No change in proximal humeral fracture. Reviewed by: Jeremias Carrizales MD on 12/01/2020 1:52 PM PST Approved by: Jeremias Carrizales MD on 12/01/2020 1:52 PM PST Station ID: [id number]
== END 2020-12-01 23:59 | disposition home or self-care (01) ==
LOC: DI.N 08:00
PROVIDERS: ATTEND Orthopaedic Surgery
DX: S42.224A 2-part nondisplaced fracture of surgical neck of right humerus, initial encounter for closed fracture (principal)

== ENCOUNTER 2020-12-19 08:49 | Outpatient (CLI) | payer MEDICARE, OTHER ==
--- NOTE | 2020-12-20 13:28 | Mammography Report ---
BILATERAL DIGITAL DIAGNOSTIC MAMMOGRAM 3D/2D: 12/19/2020 CLINICAL: Patient returns for 6 month follow up on right breast calcifications. Annualy screening lef t breast. Comparison is made to exams dated: 06/03/2020 mammogram, 10/05/2019 mammogram, 09/09/2019 mammogram, a nd 11/19/2017 mammogram - [facility]. There are scattered fibroglandular elements i n both breasts. There are grouped segmental fine punctate calcifications in the right breast at 10 o'clock middle dep th. These are progressively increased in number of calcifications. No other significant masses, calcifications, or other findings are seen in either breast. IMPRESSION: SUSPICIOUS OF MALIGNANCY The grouped segmental fine punctate calcifications in the right breast are at a low suspicion for mal ignancy. Given progressive increase in calcifications compared to prior studies, a stereotactic biop sy is recommended. The findings were discussed with the patient at the conclusion of the study by Dr. Case. This exam was interpreted at Station ID: [id number]. NOTE: For mammograms, a report in lay terms will be sent to the patient. Approximately 15% of breast malignancies will not be visualized mammographically. In the management of a palpable breast mass, a negative mammogram must not discourage biopsy of a clinically suspicious lesion. Electronically Signed By: Sarmad Degroot M.D. ddp/:12/19/2020 10:02:01 ACR BI-RADS Category 4a: Suspicious abnormality - low suspicion for malignancy 3344F PARENCHYMAL PATTERN: (A) - The breast(s) demonstrate(s) scattered fibroglandular densities. BI-RADS CATEGORY: (4a) - Low Susp None [id number] Immediate follow-up LATERALITY: ()
== END 2020-12-19 08:50 | disposition home or self-care (01) ==
LOC: DI 08:49
PROVIDERS: ATTEND Physician Assistant
DX: R92.1 Mammographic calcification found on diagnostic imaging of breast (principal)

== ENCOUNTER 2021-06-10 11:20 | Outpatient (CLI) | payer MEDICARE, OTHER ==
--- NOTE | 2021-06-10 12:23 | Ultrasound Report ---
PROCEDURE: Abdomen Limited INDICATIONS: RUQ/EPIGASTRIC PAIN TECHNIQUE: Real-time focused scanning was performed of the abdomen, with image documentation. COMPARISON: None FINDINGS: Liver demonstrates no focal mass and increased echogenicity. Gallbladder demonstrates calc nishant within its lumen without evidence of wall thickening. Ringdown artifact within the anterior gallb ladder wall is present, suggestive of adenomyomatosis. No biliary ductal dilatation. Pancreas is valentino sly unremarkable. Right kidney is grossly unremarkable. IMPRESSION: 1. Cholelithiasis without evidence of cholecystitis. 2. Gallbladder wall adenomyomatosis. 3. Hepatic steatosis. Reviewed by: Jeremias Pinon MD on 06/10/2021 12:21 PM PDT Approved by: Jeremias Pinon MD on 06/10/2021 12:21 PM PDT Station ID: [id number]
== END 2021-06-10 11:21 | disposition home or self-care (01) ==
LOC: DI 11:20
PROVIDERS: ATTEND Physician Assistant
DX: R10.13 Epigastric pain (principal); K80.20 Calculus of gallbladder without cholecystitis without obstruction; K82.8 Other specified diseases of gallbladder; K76.0 Fatty (change of) liver, not elsewhere classified

== ENCOUNTER 2022-06-22 10:08 | Outpatient (CLI) | payer MEDICARE, OTHER ==
--- NOTE | 2022-06-25 10:04 | Mammography Report ---
BILATERAL DIGITAL DIAGNOSTIC MAMMOGRAM 3D/2D: 06/22/2022 CLINICAL: Focal left breast/axillary pain. Comparison is made to exams dated: 12/19/2020 mammogram, 06/03/2020 mammogram, 10/05/2019 mammogram, mammogram, 11/19/2017 mammogram - [facility], and 04/29/2017 mammogram - [facility]. There are scattered areas of fibroglandular density in both breasts (category b / 25%-50% glandular t issue). No significant masses, calcifications, or other findings are seen in either breast. Benign calcificat ions in the right breast. IMPRESSION: INCOMPLETE: NEEDS ADDITIONAL IMAGING EVALUATION No mammographic evidence of malignancy. A targeted ultrasound is recommended and will immediately follow. Based on the Tyrer Cuzick model (a risk assessment model) the patients lifetime risk is 5.4% and her 10 year risk is 4.9%. According to the ACR, ACS, and NCCN guidelines, an annual breast MRI exam yakov g with mammogram is recommended if the patients lifetime risk is 20% or greater. This exam was interpreted at Station ID: [id number]. NOTE: For mammograms, a report in lay terms will be sent to the patient. Approximately 15% of breast malignancies will not be visualized mammographically. In the management of a palpable breast mass, a negative mammogram must not discourage biopsy of a clinically suspicious lesion. Electronically Signed By: Attila Conteh M.D. slc/:06/22/2022 11:06:13 ACR BI-RADS Category 0: Incomplete 3340F PARENCHYMAL PATTERN: (A) - The breast(s) demonstrate(s) scattered fibroglandular densities. BI-RADS CATEGORY: (0) - 0 Ultrasound [id number] Immediate follow-up LATERALITY: (B)
--- NOTE | 2022-06-25 10:04 | Ultrasound Report ---
ULTRASOUND OF LEFT BREAST AND AXILLA: 06/22/2022 CLINICAL: Focal left axilla pain. Comparison is made to exams dated: 06/22/2022 mammogram - [facility], 01/03/2021 spe cimen, 01/03/2021 stereotactic biopsy - [facility], 12/19/2020 mammogram, 06/03/2020 mammogr am, and 10/05/2019 mammogram - [facility]. Color flow and real-time ultrasound of the left breast axilla were performed. Smith scale images of t he real-time examination were reviewed. No significant abnormalities were seen sonographically in the left axilla. Small benign left axillary lymph nodes. No cortical thickening. IMPRESSION: BENIGN There is no sonographic evidence of malignancy. No supicious left axillary nodes in the region of pain. Exam findings were conveyed to the patient. Patient is advised to monitor for significant change. Cli nical follow-up as needed. A 1 year screening mammogram is recommended. This exam was interpreted at Station ID: [id number]. Electronically Signed By: Attila Conteh M.D. slc/:06/22/2022 11:28:43 Ultrasound BI-RADS: 2 Benign BI-RADS CATEGORY: (2) - 2 RECOMMENDATION: (ANNUAL) - Recommend routine annual screening mammography. [id number] 1 year screening LATERALITY: (B)
== END 2022-06-22 10:09 | disposition home or self-care (01) ==
LOC: DI 10:08
PROVIDERS: ATTEND Physician Assistant
DX: N62 Hypertrophy of breast (principal); N64.4 Mastodynia

== ENCOUNTER 2022-08-02 09:06 | Outpatient (CLI) | payer MEDICARE, OTHER ==
--- NOTE | 2022-08-02 09:52 | XRAY Report ---
PROCEDURE: Chest 2 View X-Ray INDICATIONS: COUGH TECHNIQUE: PA and lateral chest COMPARISON: None. FINDINGS: Lung parenchyma is clear. Heart and mediastinal contours appear within normal limits. Pulmonary vascu larity is normal. No pleural effusion or acute osseous abnormality is seen. Old posttraumatic changes involving the patient's right proximal humerus. IMPRESSION: 1. No evidence for active disease in the chest. 2. Old posttraumatic changes proximal right humerus. Reviewed by: Mikey Ware MD on 08/02/2022 9:51 AM [facility] Approved by: Mikey Ware MD on 08/02/2022 9:51 AM [facility] Station ID: [id number]
== END 2022-08-02 09:07 | disposition home or self-care (01) ==
LOC: DI 09:06
PROVIDERS: ATTEND Physician Assistant
DX: R05.3 Chronic cough (principal); R06.02 Shortness of breath

== ENCOUNTER 2022-08-27 13:18 | Outpatient (CLI) | payer MEDICARE, OTHER | END 2022-08-27 13:19 | disposition home or self-care (01) | LOC: RT 13:18 | PROVIDERS: ATTEND Physician Assistant | DX: R05.3 Chronic cough (principal); R06.02 Shortness of breath | CPT/HCPCS: 94010 ==

== ENCOUNTER 2023-01-31 14:00 | Outpatient (CLI) | payer MEDICARE, OTHER ==
--- NOTE | 2023-01-31 15:00 | DEXA Report ---
PROCEDURE: Dexa Spine and/or Hip INDICATIONS: POST MENOPAUSAL TECHNIQUE: Dual energy x-ray absorptiometry (DXA) was performed on a Wuiper System. Regions measur ed are the AP Spine, femoral neck, and if needed forearm. COMPARISON: 06/23/2020 FINDINGS: Lumbar Spine: Bone Mineral Density 1.126 g/cm/cm,T score -0.4, compared to -1.9 Left Femoral Neck: Bone Mineral Density 0.713 g/cm/cm, T score -2.3, compared to -2.0. Left Hip: Bone Mineral Density 0.773 g/cm/cm,T score -1.9, compared to -2.1. (T score greater or equal to -1.0: NORMAL) (T score from -1.1 to -2.4: OSTEOPENIA) (T score less than or equal to -2.5 to: OSTEOPOROSIS) Impression: By WHO criteria, this patient has low bone density (osteopenia). Is most severe in the left femoral n inocencia. Previous osteopenia within the spine has resolved to normal bone mineral density. Patients with diagnosis of osteoporosis or osteopenia should have regular bone mineral density assess ment. For those eligible for Medicare, routine testing is allowed once every 2 years. Testing frequ ency can be increased for patients who have rapidly progressing disease or for those who are receivin g medical therapy to restore bone mass. Reviewed by: Ashanti Latif MD on 01/31/2023 2:59 PM PDT Approved by: Ashanti Latif MD on 01/31/2023 2:59 PM PDT Station ID: [id number]
== END 2023-01-31 14:01 | disposition home or self-care (01) ==
LOC: DI 14:00
PROVIDERS: ATTEND Physician Assistant
DX: Z78.0 Asymptomatic menopausal state (principal); N95.8 Other specified menopausal and perimenopausal disorders; M85.88 Other specified disorders of bone density and structure, other site

== ENCOUNTER 2023-05-10 19:51 | Emergency (ER) | payer MEDICARE, OTHER ==
[2023-05-10] MEDS ORDERED: SODIUM CHLORIDE 0.9% 1,000 ML IV STA (20:23)
[2023-05-10 20:35] LABS: BASOPHILS # (AUTO) 0.1 10^3/uL (0.0-0.1); BASOPHILS % (AUTO) 0.8 %; EOSINOPHILS # (AUTO) 0.3 10^3/uL (0.0-0.7); EOSINOPHILS % (AUTO) 3.2 %; HCT - HEMATOCRIT 40.1 % (37.0-47.0); HGB - HEMOGLOBIN 13.3 g/dL (12.0-16.0); LYMPHOCYTES # (AUTO) 1.9 10^3/uL (1.5-3.5); LYMPHOCYTES % (AUTO) 21.5 %; MEAN CORPUSCULAR HEMOGLOBIN 30.1 pg (27.0-31.0); MEAN CORPUSCULAR HGB CONC 33.2 g/dL (32.0-36.0); MEAN CORPUSCULAR VOLUME 90.7 fL (81.0-99.0); MEAN PLATELET VOLUME 9.7 fL (7.9-10.8); MONOCYTES # (AUTO) 0.7 10^3/uL (0.0-1.0); MONOCYTES % (AUTO) 8.2 %; NEUTROPHILS # (AUTO) 5.9 10^3/uL (1.5-6.6); NEUTROPHILS % (AUTO) 66.1 %; PLT - PLATELET COUNT 311 10^3/uL (130-450); RED BLOOD COUNT 4.42 10^6/uL (4.20-5.40); RED CELL DISTRIBUTION WIDTH 13.2 % (12.0-15.0); WHITE BLOOD COUNT 8.9 x10^3/uL (4.8-10.8)
[2023-05-10] MEDS ORDERED: DICYCLOMINE 10 MG CAPSULE PO STA (20:48)
[2023-05-10 20:49] LABS: ALBUMIN 4.3 g/dL (3.2-5.5)
--- NOTE | 2023-05-10 20:51 | ED Physician Documentation ---
History of Present Illness - Stated complaint Stated Complaint: GI - Chief complaint Chief Complaint: Abd Pain - History obtained from History obtained from: Patient - Additonal information Additional information: 77-year-old woman with history of IBS, diabetes, high blood pressure, Presents with intermittent cramping diffuse abdominal pain and nonbloody diarrhea for the past 2 weeks. Patient states she had a food poisoning episode that started all of this. Today she noticed a small drop of blood while pooping and came to the emergency department to have this checked. Denies nausea, fever, urinary symptoms. PD PAST MEDICAL HISTORY - Past Medical History Cardiovascular: Hypertension Respiratory: None Endocrine/Autoimmune: None GI: Colon polyps, Other HEENT: Chronic vision loss Psych: Depression Musculoskeletal: Other Derm: Rosacea - Past Surgical History Past Surgical History: Yes Ortho: Other - Present Medications Home Medications: Ambulatory Orders Medication Instructions Recorded Confirmed Propranolol [Inderal] 40 mg PO BID 05/29/14 03/19/16 Venlafaxine ER [Effexor ER] 75 mg PO DAILY 05/29/14 03/19/16 Atorvastatin Calcium [Lipitor] 20 mg ORAL QPM 08/01/15 03/19/16 Pramipexole [Mirapex] 125 mcg ORAL QPM 08/01/15 03/19/16 Losartan [Cozaar] 50 mg PO DAILY 03/19/16 03/19/16 Primidone [Mysoline] 250 mg PO BID 03/19/16 03/19/16 Teriflunomide [Aubagio] 14 mg PO DAILY 03/19/16 03/19/16 HYDROcod/ACETAM 5/325 [[place] 5/325] 1 - 2 ea PO Q6H PRN #20 tablet 07/31/20 Dicyclomine [Bentyl] 10 mg PO QID PRN #15 tab 05/10/23 - Allergies Allergies/Adverse Reactions: Allergies Allergy/AdvReac Type Severity Reaction Status Date / Time latex AdvReac Unknown Verified 05/10/23 19:59 - Social History Does the pt smoke?: No Smoking Status: Never smoker Does the pt drink ETOH?: Yes Does the pt have substance abuse?: No - Immunizations Immunizations are current?: Yes - POLST Patient has POLST: No PD ED PE NORMAL - Vitals Vital signs reviewed: Yes - General General: Alert and oriented X 3, No acute distress, Well developed/nourished - HEENT HEENT: Atraumatic, PERRL, EOMI - Neck Neck: Supple, no meningeal sign - Cardiac Cardiac: RRR - Respiratory Respiratory: No respiratory distress, Clear bilaterally - Abdomen Abdomen: Non tender, Non distended - Rectal Rectal: Other (external nonthrombosed hemorrhoids. KOBE with brown stool on exam) - Back Back: No CVA TTP - Derm Derm: Normal color, Warm and dry Results - Vitals Vitals: Vital Signs - 24 hr 05/10/23 05/10/23 19:59 20:34 Temperature 36.5 C Heart Rate 83 76 Respiratory 16 16 Rate Blood Pressure 140/88 H 144/86 H O2 Saturation 96 95 Oxygen O2 Source Room air - Labs Labs: Laboratory Tests 05/10/23 05/10/23 20:30 20:30 WBC 8.9 RBC 4.42 Hgb 13.3 Hct 40.1 MCV 90.7 MCH 30.1 MCHC 33.2 RDW 13.2 Plt Count 311 MPV 9.7 Neut # (Auto) 5.9 Lymph # (Auto) 1.9 Bates # (Auto) 0.7 Eos # (Auto) 0.3 Baso # (Auto) 0.1 Absolute Nucleated RBC 0.00 Nucleated RBC % 0.0 Sodium 135 Potassium 4.0 Chloride 103 Carbon Dioxide 26 Anion Gap 6.0 BUN 22 H Creatinine 0.8 Estimated GFR (MDRD) 70 L Glucose 111 H Calcium 9.9 Total Bilirubin 0.3 AST 19 ALT 19 Alkaline Phosphatase 59 Total Protein 6.9 Albumin 4.3 Globulin 2.6 Albumin/Globulin Ratio 1.7 Lipase 40 PD Medical Decision Making - ED course ED course: 77-year-old woman presented to the emergency department with intermittent diarrhea and cramping abdominal pain for the past 2 weeks. She does have a history of IBS as well. She came in today due to a small drop of blood when having a bowel movement. On exam, she has no blood on KOBE but does have evidence of hemorrhoids which may be the cause. We will check CBC, abdominal panel, reevaluate. Also administered oral Bentyl for cramping pain. Pain resolved with bentyl. labwork benign. advised outpatient f/u with pcp. return precautions given. Departure - Departure Disposition: 01 Home, Self Care Clinical Impression: IBS (irritable bowel syndrome), Abdominal pain, Diarrhea Condition: Stable Instructions: ED IBS Prescriptions: Dicyclomine [Bentyl] 10 mg PO QID PRN #15 tab PRN Reason: Abdominal Pain Comments: You were seen in the emergency department for abdominal pain and diarrhea. Your lab work showed no emergent cause for your symptoms. Please follow-up with your primary care provider and return to the emergency department with new or worsening symptoms or other concerns. Prescription for bentyl was printed for you. You can fill this at any pharmacy, including out of state pharmacies. Forms: PCP List
[2023-05-10 21:05] LABS: ALBUMIN/GLOBULIN RATIO 1.7 (1.0-2.2); BILIRUBIN,TOTAL 0.3 mg/dL (0.2-1.0); CALCIUM 9.9 mg/dL (8.5-10.3); CREATININE 0.8 mg/dL (0.6-1.3); TOTAL PROTEIN 6.9 g/dL (6.4-8.9)
[2023-05-10 22:12] LABS: BILIRUBIN,URINE NEGATIVE (NEGATIVE); GLUCOSE, URINE (UA) NEGATIVE (NEGATIVE); KETONES,URINE (UA) NEGATIVE (NEGATIVE); LEUKOCYTE ESTERASE, URINE SMALL (NEGATIVE); NITRITE,URINE NEGATIVE (NEGATIVE); OCCULT BLOOD,URINE NEGATIVE (NEGATIVE); PROTEIN,URINE NEGATIVE (NEGATIVE); UROBILINOGEN,URINE 0.2 (NORMAL) E.U./dL (NORMAL)
[2023-05-10 22:27] LABS: BACTERIA,URINE Rare /HPF (None Seen); CLARITY,URINE CLEAR (CLEAR); RBC,URINE None Seen /HPF (0-5); SQUAMOUS EPITHELIAL CELL,UR RARE Squamous (<= Few)
[2023-05-10 22:38] VITALS: BP 157/92; O2SAT 98
== END 2023-05-10 22:36 | disposition home or self-care (01) ==
LOC: ED 19:51
DX: K58.0 Irritable bowel syndrome with diarrhea (principal); R10.84 Generalized abdominal pain; I10 Essential (primary) hypertension; Z79.899 Other long term (current) drug therapy
CPT/HCPCS: 36415; 80053; 81001; 83690; 85025; 87086; 99283; A9270; 81003